=== PATIENT | male | born 2000 | race Two or more races ===

== ENCOUNTER 2023-10-01 15:20 | Outpatient (CLI) | payer OTHER ==
--- NOTE | 2023-10-01 16:15 | Sleep Patient Instructions ---
Sleep Center Visit Summary - Patient Visit Information Reason for Visit: Initial consult for evaluation of sleep disordered breathing and other sleep issues. - Patient Instructions Instructions Attached: Sleep Study Additional Instructions: You will be completing a sleep study, either an in-lab polysomnography (PSG) or home sleep study (HST). You will follow-up in the sleep care office after the sleep study is completed to hear the results and talk about therapy, if needed. You will be called by our office staff to schedule this appointment, but you may contact us with any questions. - Clinic Information Contact: [facility] [address] [place] [address] [email or web address] T: [phone]
--- NOTE | 2023-10-01 16:19 | SLEEP CARE CONSULTATION ---
Information from patient questionnaire entered by Stephany Amaya. I have reviewed and concur with the information entered by Stephany Amaya. This document represents the service I personally performed and the decisions made by me, Perlita Collazo ARNP. History of Present Illness Service Date and Time: 10/01/2023 1520 Reason for Visit: New patient Chief Complaint: reports: Unrefreshed sleep, Snoring, Observed pauses in breathing Date of Onset: 2YRS Usual bedtime: 5452-6449 Time it takes to fall asleep: 15-60MINS Snores at night: Yes Observed to quit breathing while asleep: Yes Sleeps alone due to snoring: No Number of times waking at night: 1-4 Reasons for waking at night: reports: Other (UNKNOWN). denies: Choking, Snoring, Gasping for air Toss, Turn, or Twitch while sleeping: Yes Recalls having dreams: Yes Usually gets out of bed at: 0520; weekends 07-0800 Feels refreshed in the morning: No Morning headache: Yes (2-3 times a week; last 1-2 hours; mostly when he sleeps in) Sleepy or fatigued during the day: Yes Ever fallen asleep while driving: No Takes day naps: No Dreams during day naps: No Prior sleep studies: No Additional HPI information: I had the pleasure of seeing DUSTIN VAUGHN today regarding the possibility of him having a sleep disorder. His current complaints are observed pauses in breathing, snoring and unrefreshed sleep. He needs evaluation because he ans wered that he snored, stopped breathing in sleep and had unrefreshed sleep for a job change he is trying to get and was referred here. He has been told he snored by his . She will also "nudge" him at night when she notices him stop breathing. He says his father has sleep apnea and is on a CPAP machine. - Parasomnia Symptoms Ever been unable to move upon waking from sleep: No Walks in sleep: No Talks in sleep: No Ever acted out dreams in sleep: No Ever felt weak in the knees when startled or emotional: No Bothered by creepy, crawly, restless sensations in legs: Yes (tingling in legs, moving helps; no pattern to it) Problems with memory or concentration: Yes (sometimes both) Subjective Initial [place] Sleepiness Scale score: 12 (10/01/23) Past Medical History Past Medical History: reports: Anxiety, Depression Social History The patient's occupation is a AM. Patient is and lives in . Have you smoked in the past 12 months: No Cigarettes per day (20/pack): 5 Years of smokin Quit date: 2019 Smoking Pack Years: 0.2 Alcohol use: No Caffeine use: Yes Caffeine amount and frequency: 300MG QD Family History Family history of sleep disordered breathing: Yes Family Hx Sleep Apnea: Father: Snoring, Sleep apnea - Treated Allergies and Home Medications Known drug allergies: Yes ( LISTED ) Drug allergies reviewed: Yes Home medication list reviewed: Yes (as listed) Allergy and home medication list: Allergies amoxicillin Allergy (Verified 10/01/23 15:26) Home Medications B Complx/C/Folic/Zinc/Cup Jackson/E [Wqptdlchpocc-Ydmc-Etftqs Tab] See Rx Instructions .ROUTE .COMPLEX 10/01/23 [History] Calcium Carbonate [Calcium] See Rx Instructions .ROUTE .COMPLEX 10/01/23 [Histo ry] Iron Fum,Ps/Folic/Bcomp,C No.9 [Iron Folate Plus Capsule] See Rx Instructions .ROUTE .COMPLEX 10/01/23 [History] Magnesium See Rx Instructions .ROUTE .COMPLEX 10/01/23 [History] Review of Systems Weight gain over past 5 years: 20 Weight loss over past 5 years: 30 Cardiovascular: denies: high blood pressure Gastrointestinal: denies: heartburn Neurological: reports: headaches Psychiatric: reports: anxiety, depression. denies: Attention Deficit Hyperactivity Ear/Nose/Throat: reports: wisdom teeth removed. denies: tonsillectomy Immunologic: reports: sneezing Physical Exam Vital signs obtained and entered by: STEPHANY Quintero MA Blood Pressure: 124/74 (RIGHT ARM) Cuff size: regular Heart Rate: 52 O2 Saturation: 100 Height: 5 ft 8 in Weight: 151 lb 9.6 oz Body Mass Index: 23.0 BMI Classification: Normal Neck circumference: 13.75 Mouth and throat: narrow oropharynx Soft palate: long Hard palate: normal Uvula: normal Uvula visualization: 25% Mallampati Class III Tongue: enlarged in size with teeth bajwa on lateral edges Tonsils: 3+/kissing Neck: normal w/o lymphadenopathy or thyromegaly Heart: regular rate and rhythm Lungs: clear bilaterally Impression and Plan 1. Suspected Obstructive Sleep Apnea-Hypopnea Syndrome, as suggested by a history of loud and irregular snoring, observed cessation of breath while asleep, morning headache, unrefreshed sleep, cognitive impairment, and excessive daytime sleepiness. Narrow oropharynx and obesity are common predisposing factors for obstructive sleep apnea-hypopnea syndrome. I recommend proceeding to polysomnography to confirm the diagnosis and to assess severity. If the patient has significant sleep disordered breathing, a manual CPAP titration study will also be performed to find the optimal treatment pressure. I informed the patient of what the sleep studies involve and after some discussion, obtained agreement to proceed. The pathophysiology of obstructive sleep apnea-hypopnea syndrome was discussed with the patient and health risks of cardiovascular and cerebrovascular disease if not treated. Risks of drowsy driving discussed in detail and patient advised to avoid long distance driving and to hook puller at the first sign of drowsiness. Patient agreed to plan. * Schedule polysomnography * Avoid long distance driving or driving when feeling sleepy. * Avoid alcohol, sedative and muscle relaxant around bedtime. * Review instructions provided by trained office staff on how to prepare for the sleep study. * Return for follow-up after sleep study completed. Plan: PSG Visit Type: In Office Time Spent with Patient (minutes): 30 Provider Statement: I spent 100% of the Face to Face Visit with the patient with greater than 50% spent counseling the patient and coordination of care.
[2023-10-01 16:26] VITALS: BP 124/74; O2SAT 100
== END 2023-10-01 15:21 | disposition home or self-care (01) ==
LOC: SC 15:20
PROVIDERS: ATTEND Nurse Practitioner Family
DX: R06.83 Snoring (principal); G47.10 Hypersomnia, unspecified; R51.9 Headache, unspecified; R41.89 Other symptoms and signs involving cognitive functions and awareness
CPT/HCPCS: 99203; 99212

== ENCOUNTER 2023-12-09 19:32 | Outpatient (CLI) | payer OTHER | END 2023-12-09 19:33 | disposition home or self-care (01) | LOC: SC 19:32 | PROVIDERS: ATTEND Nurse Practitioner Family | DX: R06.83 Snoring (principal); R06.81 Apnea, not elsewhere classified; G47.10 Hypersomnia, unspecified; F32.A Depression, unspecified; R51.9 Headache, unspecified; G47.8 Other sleep disorders | CPT/HCPCS: 95810 ==

== ENCOUNTER 2024-01-19 14:27 | Outpatient (CLI) | payer OTHER ==
--- NOTE | 2024-01-19 14:49 | Sleep Patient Instructions ---
Sleep Center Visit Summary - Patient Visit Information Reason for Visit: Sleep study follow-up - Patient Instructions Additional Instructions: Your sleep study today was negative for significant sleep disordered breathing. You were found to have episodes of snoring. There are different ways to control snoring including oral devices made by a dentist or surgical options through ENT specialist. You should not use oral devices that do not fit properly because they can affect your bite. You should also check insurance coverage of oral devices for snoring because they may not be cover well. You may obtain a referral to an ENT specialist through your primary provider. Follow-up as needed. - Clinic Information Contact: [facility] [address] [place] [id number] [email or web address] T: [phone]
--- NOTE | 2024-01-19 14:50 | SLEEP CARE CONSULTATION ---
Information from patient questionnaire entered by Vijaya Amaya. I have reviewed and concur with the information entered by Vijaya Amaya. This document represents the service I personally performed and the decisions made by , Perlita Collazo ARNP. History of Present Illness Service Date and Time: 01/19/20241426 Initial [place] Sleepiness Scale score: 12 (10/01/23) Current [place] Sleepiness Scale score: 10 Additional HPI information: DUSTIN VAUGHN returns for follow up and results of the recently performed polysomnography. The patient was informed of the following findings: No significant sleep disordered breathing with an average AHI of 1.2 and dion oxygen saturation of 92%. I explained the pathophysiology behind obstructive sleep apnea. Patient does not have sleep apnea and was advised how weight gain could increase the risk of developing sleep apnea in the future. Patient has complaints of snoring at home. Snoring can be reduced by an oral appliance from a dentist. Advised to check insurance coverage. In addition, an ENT evaluation can be do to see if other treatment is indicated. Patient counseled not drink alcohol less than 4 hours before bedtime as it can increase snoring and apnea. Patient was cautioned about risks of drowsy driving until sleepiness symptoms resolve. Patient denies drowsy driving. Sleep Study - Results Type of Sleep Study: Polysomnography (COMPLETED 12/09/23) Prior sleep studies: No Polysomnography/Home Sleep Study results: IMPRESSION: The quality of the study is good. The patient had normal sleep efficiency. The sleep architecture was also normal. Respiratory monitoring showed no significant sleep disordered breathing (AHI = 1.2) or hypoxia (dion oxygen saturation of 92%). The patient slept adequately in supine position (supine AHI = 0.7; non-supine = 1.35). No audible snore. There was no significant periodic leg movement of sleep. Cardiac rhythm was normal sinus rhythm without significant arrhythmia. No abnormal behavior (parasomnia) observed during the night. Allergies and Home Medications Known drug allergies: Yes (as listed) Drug allergies reviewed: Yes Home medication list reviewed: Yes (no changes) Allergy and home medication list: Allergies amoxicillin Allergy (Verified 01/15/24 11:12) Review of Systems Review of systems same as previous: Yes (no changes) Physical Exam Vital signs obtained and entered by: PERLITA MARIN Blood Pressure: 108/66 Cuff size: regular (left arm) Heart Rate: 84 O2 Saturation: 99 Height: 5 ft 8 in Weight: 146 lb 12.8 oz (with boots) Body Mass Index: 22.3 BMI Classification: Normal Impression and Plan 1. Snoring but no significant sleep disordered breathing. Patient advised that often weight loss will reduce snoring as well as apnea risk. An oral appliance can also be used for snoring. This would require a dental consultation. Patient cautioned not to use other online appliances as can cause bite issues. Patient is advised to check if insurance will cover. An ENT consult can also be helpful to determine if any other treatment is an option. * Maintain healthy weight * Avoid alcohol consumption near bedtime * The patient is cautioned about driving until sleepiness is completely resolved. * Return as needed for follow up. Visit Type: In Office Time Spent with Patient (minutes): 16 Provider Statement: I spent 100% of the Face to Face Visit with the patient with greater than 50% spent counseling the patient and coordination of care.
[2024-01-19 14:57] VITALS: BP 108/66; O2SAT 99
== END 2024-01-19 14:28 | disposition home or self-care (01) ==
LOC: SC 14:27
PROVIDERS: ATTEND Nurse Practitioner Family
DX: R06.83 Snoring (principal)
CPT/HCPCS: 99212